=== PATIENT | male | born 1960 | race Hispanic/Latino ===

== ENCOUNTER 2017-09-29 22:00 | Emergency (ER) | payer BC ==
--- NOTE | 2017-09-29 22:54 | C.PDOC ---
History Of Present Illness 57 year old male with PMHx of HIV presents to the ED for evaluation of depression. Patient states he is at "the end of the rope". Patient denies SI/HI , hallucinations, other medical complaints. Chief Complaint (Nursing): Psychiatric Evaluation History Per: Patient History/Exam Limitations: no limitations Onset/Duration Of Symptoms: Days Current Symptoms Are (Timing): Still Present Suicide/Self Injury Attempted (Context): None Modifying Factor(s): Alcohol Associated Symptoms: Depression. denies: Suicidal Thoughts, Suicidal Plan Recent travel outside of the [place]: No Additional History Per: Patient Past Medical History Reviewed: Historical Data, Nursing Documentation, Vital Signs Vital Signs: Last Vital Signs Temp 98.5 F 09/29/17 22:19 Pulse 59 L 09/29/17 22:19 Resp 16 09/29/17 22:19 BP 151/93 H 09/29/17 22:19 Pulse Ox 96 09/29/17 22:54 - Medical History PMH: Anxiety, Depression, HIV Denies: Chronic Kidney Disease Surgical History: No Surg Hx Family History: States: Unknown Family Hx - Social History Hx Alcohol Use: Yes Hx Substance Use: No - Immunization History Hx Tetanus Toxoid Vaccination: Yes Hx Influenza Vaccination: No (not yet this year, but yes to last year) Hx Pneumococcal Vaccination: No Review Of Systems Constitutional: Negative for: Fever, Chills Cardiovascular: Negative for: Chest Pain Respiratory: Negative for: Cough, Shortness of Breath Gastrointestinal: Negative for: Nausea, Vomiting, Abdominal Pain Skin: Negative for: Rash Neurological: Negative for: Weakness, Numbness Psych: Positive for: Depression. Negative for: Suicidal ideation Physical Exam - Physical Exam Appears: Non-toxic, No Acute Distress, Other (slight AOB) Skin: Normal Color, Warm, Dry Head: Atraumatic, Normacephalic Eye(s): bilateral: Normal Inspection Neck: Normal ROM, Supple Chest: Symmetrical Cardiovascular: Rhythm Regular Respiratory: Normal Breath Sounds, No Rales, No Rhonchi, No Wheezing Gastrointestinal/Abdominal: Soft, No Tenderness, No Guarding, No Rebound Extremity: Normal ROM, No Tenderness, No Swelling Neurological/Psych: Oriented x3, Normal Speech Gait: Steady ED Course And Treatment - Laboratory Results Result Diagrams: 09/29/17 22:59 09/29/17 22:59 O2 Sat by Pulse Oximetry: 96 (ON RA) Pulse Ox Interpretation: Normal Medical Decision Making Medical Decision Making: Plan: * Labs * UA * Crisis Disposition Discussed With Dr.: Florentino Ferrari Counseled Patient/Family Regarding: Diagnosis - Disposition Referrals: [facility] [Outside] Disposition: HOME/ ROUTINE Disposition Time: 23:57 Condition: STABLE Instructions: Depression, Adult (DC) Forms: [employer] (Citizen Of [place]) - POA Present On Arrival: None - Clinical Impression Clinical Impression: Depressive disorder - Scribe Statement The provider has reviewed the documentation as recorded by the Scribe Pop Del Angel All medical record entries made by the Scribe were at my direction and personally dictated by me. I have reviewed the chart and agree that the record accurately reflects my personal performance of the history, physical exam, medical decision making, and the department course for this patient. I have also personally directed, reviewed, and agree with the discharge instructions and disposition.
[2017-09-29 23:02] LABS: BASO # 0.1 K/uL (0.0-0.2); BASO % 0.7 % (0.0-2.0); EOS # 0.1 K/uL (0.0-0.7); EOS % 0.7 % (0.0-4.0); HEMOGLOBIN 16.6 g/dL (12.0-18.0); LYMPH # 2.9 K/uL (1.0-4.3); MEAN CELL VOLUME 96.9 fL (80.0-94.0); MEAN CORPUSCULAR HEMOGLOBIN 34.2 pg (27.0-31.0); MEAN CORPUSCULAR HGB CONC 35.3 g/dL (33.0-37.0); MEAN PLATELET VOLUME 7.5 fL (7.2-11.7); MONO # 0.7 K/uL (0.0-0.8); MONO % 8.2 % (0.0-10.0); NEUT # 4.9 K/uL (1.8-7.0); NEUT % 56.4 % (50.0-75.0); RBC 4.86 Mil/uL (4.40-5.90); RED CELL DISTRIBUTION WIDTH 12.7 % (11.5-14.5); WHITE BLOOD COUNT 8.7 K/uL (4.8-10.8)
[2017-09-29 23:06] LABS: URINE BACTERIA RARE (<OCC); URINE BILIRUBIN NEGATIVE (NEGATIVE); URINE CLARITY Clear (Clear); URINE COLOR Yellow (YELLOW); URINE GLUCOSE (UA) NORMAL (Normal); URINE LEUKOCYTE ESTERASE NEG Leu/uL (Negative); URINE PROTEIN NEGATIVE (NEGATIVE); URINE UROBILINOGEN NORMAL mg/dL (0.2-1.0)
[2017-09-29 23:11] LABS: URINE BLOOD TRACE (NEGATIVE)
[2017-09-29 23:15] LABS: ALB/GLOB RATIO 1.2 (1.0-2.1); ALBUMIN 3.9 g/dL (3.5-5.0); ALT/SGPT 44 U/L (21-72); AST/SGOT 31 U/L (17-59); BLOOD UREA NITROGEN 10 mg/dL (9-20); CALCIUM 9.3 mg/dl (8.6-10.4); GFR NON-AFRICAN AMERICAN > 60
[2017-09-29 23:18] LABS: BARBITURATES, UR NEGATIVE (NEGATIVE); BENZODIAZEPINES, UR NEGATIVE (NEGATIVE); OPIATES, UR NEGATIVE (NEGATIVE); PHENCYCLIDINE, UR NEGATIVE (NEGATIVE)
[2017-09-30 00:03] VITALS: BP 138/91; PULSE 74; RESP 18; TEMP 98.8; O2SAT 99
== END 2017-09-30 00:17 | disposition home or self-care (01) ==
LOC: C.ER 22:00
DX: F32.9 Major depressive disorder, single episode, unspecified (principal)
CPT/HCPCS: 80053; 81001; 85025; 99284; G0480

== ENCOUNTER 2018-05-11 13:47 | Inpatient (IN) | payer BC, MEDICAID ==
--- NOTE | 2018-05-11 14:27 | C.PDOC ---
History Of Present Illness 57 year old male presents to ED complaining of feeling depressed, weak, and having no motivation. Patient has PMHx of HIV, depression, and anxiety. Patient admits to drinking, but states that he has not drank in the last 5 days. Patient denies drug use. Patient states that he thinks he should be on medication and needs to be admitted. Patient denies homicidal ideation, suicidal ideation, headache, fever, chills, nausea, and vomiting. Time Seen by Provider: 05/11/18 13:55 Chief Complaint (Nursing): Psychiatric Evaluation History Per: Patient History/Exam Limitations: no limitations Current Symptoms Are (Timing): Still Present Suicide/Self Injury Attempted (Context): None Modifying Factor(s): Alcohol Associated Symptoms: Depression. denies: Suicidal Thoughts, Suicidal Plan Past Medical History Reviewed: Historical Data, Nursing Documentation, Vital Signs Vital Signs: Last Vital Signs Temp 97.9 F 05/11/18 13:54 Pulse 125 H 05/11/18 13:54 Resp 20 05/11/18 13:54 BP 119/80 05/11/18 13:54 Pulse Ox 96 05/11/18 13:54 - Medical History PMH: Anxiety, Depression, HIV Denies: Diabetes, Hepatitis, HTN, Chronic Kidney Disease, Seizures, Sexually Transmitted Disease Surgical History: No Surg Hx Family History: States: Unknown Family Hx - Social History Hx Alcohol Use: Yes Hx Substance Use: No - Immunization History Hx Tetanus Toxoid Vaccination: Yes Hx Influenza Vaccination: No (not yet this year, but yes to last year) Hx Pneumococcal Vaccination: No Review Of Systems Constitutional: Negative for: Fever, Chills Gastrointestinal: Negative for: Nausea, Vomiting Neurological: Negative for: Headache Psych: Positive for: Depression. Negative for: Suicidal ideation, Other (homicidal ideation) Physical Exam - Physical Exam Appears: Non-toxic, No Acute Distress, Other (frail, quiet, looks sad) Skin: Pale Head: Atraumatic, Normacephalic Neck: Normal ROM, Supple Chest: Symmetrical, No Deformity Cardiovascular: Rhythm Regular, No Murmur Respiratory: No Accessory Muscle Use, No Rales, No Rhonchi, No Wheezing Gastrointestinal/Abdominal: Soft, No Tenderness Neurological/Psych: Oriented x3, Normal Speech, Normal Cognition ED Course And Treatment - Laboratory Results Result Diagrams: 05/11/18 14:31 05/11/18 14:31 O2 Sat by Pulse Oximetry: 96 (in RA) Medical Decision Making Medical Decision Making: Impression: 57 year old male presents to ED complaining of feeling depressed, weak, and having no motivation. Plan: Labs ordered with drug screen and UA Patient placed on 1:1 observation Disposition Discussed With Dr.: Florentino Ferrari - Disposition Disposition: HOSPITALIZED Disposition Time: 15:52 Condition: IMPROVED Instructions: Depression Forms: [employer] (Sinhala) - Clinical Impression Clinical Impression: Moderate major depression, single episode - Scribe Statement The provider has reviewed the documentation as recorded by the Scribe (Christine Pisano) All medical record entries made by the Scribe were at my direction and personally dictated by me. I have reviewed the chart and agree that the record accurately reflects my personal performance of the history, physical exam, medical decision making, and the department course for this patient. I have also personally directed, reviewed, and agree with the discharge instructions and disposition. Decision To Admit - Pt Status Changed To: Hospital Disposition Of: Inpatient - Admit Certification Admit to Inpatient:: After my assessment, the patient will require hospitalization for at least two midnights. This is because of the severity of symptoms shown, intensity of services needed, and/or the medical risk in this patient being treated as an outpatient. - InPatient: Physician Admission Certification: I certify that this patient requires 2 or more midnights of care for the following reason:: needs inpatient psych - . Bed Request Type: Psychiatry Admitting Physician: Florentino Ferrari Patient Diagnosis: Moderate major depression, single episode
[2018-05-11 14:38] LABS: NRBC % 0.1 % (0.0-2.0); RBC 4.87 Mil/uL (4.40-5.90)
[2018-05-11 14:40] LABS: URINE BILIRUBIN NEGATIVE (NEGATIVE); URINE BLOOD NEGATIVE (NEGATIVE); URINE CLARITY Clear (Clear); URINE COLOR STRAW (YELLOW); URINE GLUCOSE (UA) NEGATIVE (Normal); URINE LEUKOCYTE ESTERASE NEGATIVE Leu/uL (Negative); URINE PROTEIN NEGATIVE (NEGATIVE); URINE UROBILINOGEN 0.2 mg/dL (0.2-1.0)
[2018-05-11 14:51] LABS: ALB/GLOB RATIO 1.5 (1.0-2.1); ALBUMIN 4.5 g/dL (3.5-5.0); ALT/SGPT 154 U/L (21-72); AST/SGOT 91 U/L (17-59); BLOOD UREA NITROGEN 6 mg/dL (9-20); CALCIUM 9.8 mg/dl (8.6-10.4); GFR NON-AFRICAN AMERICAN > 60
[2018-05-11 15:04] LABS: BARBITURATES, UR NEGATIVE (NEGATIVE); BENZODIAZEPINES, UR NEGATIVE (NEGATIVE); OPIATES, UR NEGATIVE (NEGATIVE); PHENCYCLIDINE, UR NEGATIVE (NEGATIVE)
[2018-05-11] MEDS ORDERED: Sodium Chloride 0.9% 1,000 ML IV ONE (15:05)
[2018-05-11 15:09] LABS: BASO % 0.3 % (0.0-2.0); EOS % 0.2 % (0.0-4.0); LYMPH # 1.8 K/uL (1.0-4.3); LYMPH % 23.4 % (20.0-40.0); MEAN CORPUSCULAR HEMOGLOBIN 33.6 pg (27.0-31.0); MEAN CORPUSCULAR HGB CONC 36.2 g/dL (33.0-37.0); MEAN PLATELET VOLUME 7.6 fL (7.2-11.7); MONO # 0.7 K/uL (0.0-0.8); NEUT # 5.2 K/uL (1.8-7.0); NEUT % 67.1 % (50.0-75.0); RED CELL DISTRIBUTION WIDTH 13.4 % (11.5-14.5); WHITE BLOOD COUNT 7.8 K/uL (4.8-10.8)
[2018-05-11 15:10] LABS: HEMOGLOBIN 16.4 g/dL (12.0-18.0); MEAN CELL VOLUME 92.9 fL (80.0-94.0)
[2018-05-11] MEDS ORDERED: Sodium Chloride 0.9% 1,000 ML ONE (15:42)
[2018-05-11] MEDS ORDERED: Potassium Chloride 20 mEq ER Tab PO STA (16:06)
[2018-05-11] MEDS ORDERED: Potassium Chloride 20 mEq ER Tab PO ONE (16:13)
[2018-05-11 17:31] VITALS: O2SAT 99
--- NOTE | 2018-05-11 18:08 | PCM.BM ---
<Denise Hunt - Last Filed: 05/11/18 18:06> Treatment Plan Problems - Problems identified on initial assessmt Hopeless/Helplessness Date Initiated: 05/11/18 Time Initiated: 18:07 Assessment reference: NA Status: Active Feeling of worthlessness Date Initiated: 05/11/18 Time Initiated: 18:07 Assessment reference: NA Status: Active Treatment assets and liabiliti Patient Assests: cooperative, educated, insightful, ADL independent Patient Liabilities: financial problems, medical problems - Milieu Protocol Maintain good personal hygiene: daily Encourage regular showers, daily Remind patient to perform daily oral care, daily Assist patient to perform ADL's Maintain personal safety: every shift Educate patient to report safety concerns to staff, every shift Monitor environment for contraband/sharps Medication safety: Monitor for expected outcome, potential side effects: every shift, Assess barriers to learning: every shift, Assess readiness for medication education: every shift <Florentino Ferrari - Last Filed: 05/12/18 11:39> - Diagnosis (1) Bipolar depression Status: Acute Interventions: 05/12/18 11:39 * Assess/adjust medications daily and /or as needed * See patient on an individual basis 7x/week to assess level of manic behaviors and stability * Discuss risks, benefits, side effects and alternatives of medications * (2) Alcohol use disorder, severe, dependence Status: Acute Interventions: 05/12/18 11:41 * Assess 7x/week regarding severity of withdrawal * Educate regarding risks, benefits, side effects and alternatives of medications * Use Motivational Interviewing for abstinence * Use CBT for relapse prevention * Medication management for withdrawal symptoms * Encourage medication assisted treatment * <Julieth Walker - Last Filed: 05/12/18 13:09> Family Contact Family involvement: Family/SO is involved Family contact: Patient agrees to contact - Goals for Treatment Patient goals for treatment: "I want to go to an outpatient program." Discharge/Continuing Care - Education Needs Education Needs: Patient Medication, Patient Diagnosis/Disease Process, Patient Coping Skills, Patient Placement options, Patient Community resources - Discharge Discharge Criteria: Free of Suicidal thoughts, Free of agitation, Normal sleep pattern, Ability to care for self, No longer exhibiting s/s of withdrawal, Reduction of target symptoms Discharge to:: Home - Treatment Team Participation Discussed with Family/SO: No Was Patient/Family/SO present at Treatment Team Meeting: Yes
[2018-05-12 06:40] VITALS: RESP 18
--- NOTE | 2018-05-12 11:36 | PCM.PSYCH ---
Initial Psychiatric Evaluation - Initial Psychiatric Evaluation Type of Admission: Voluntary Legal Status: Capacity Chief Complaint (in patient's own words): I was feeling depressed. History of Present Illness and Precipitating Events: Patient is a 57 years old male, who is currently living alone and unemployed, came to the ED with depressed mood and suicidal ideation. Patient denies any past history of any inpatient psychiatric hospitalizations. He denies any history of follow-up with a psychiatrist. As per the patient he is feeling increasingly depressed due to some social stressors. Pt said that his unemployment was cut off after (4) months, and he began some limited work with [employer]. Pt also said that he is on the verge of being evicted. Pt said that he was sitting at home feeling very bad about his medical (HIV positive, blood in his stool) and psychological condition, waiting for a stroke or a heart attack, when he decided to come into the hospital. Patient reports depressed mood and at times feelings of hopelessness and helplessness. He also reports at times irritability and agitation. He reports of drinking up to a pint of vodka daily. He reports very high anxiety and irritability and at times panic attacks. He reports some withdrawal symptoms including anxiety and irritability. However he denies any auditory hallucinations or any paranoia. Past medical history HIV positive Current Medications: Active Medications Generic Name Dose Route Start Last Admin Trade Name Freq PRN Reason Stop Dose Admin Trazodone HCl 50 mg 05/11/18 19:50 05/11/18 22:18 Desyrel PO 50 mg HS PRN Administration Insomnia Past Psychiatric History - Past Psychiatric History Previous Treatment History: None Pertinent Medical Hx (Current Medical&Sleep Prob, Allergies): Allergies Allergy/AdvReac Type Severity Reaction Status Date / Time No Known Allergies Allergy Unverified 05/11/18 13:55 Abacavir/Dolutegravir/Lamivudi [Triumeq 600-50-300 mg Tablet] 1 tab PO DAILY 09/29/17 Atorvastatin 1 tab PO DAILY 09/29/17 Prazosin HCl [Minipress] 2 mg PO DAILY 09/29/17 Rexulti 1 tab PO DAILY 09/29/17 Review of Systems - Review of Systems All systems: reviewed and no additional remarkable complaints except - Psychiatric Psychiatric: Anxiety, Depression, Hopelessness, Irritability, Suicidal Ideation Mental Status Examination - Personal Presentation Personal Presentation: Looks stated age - Affect Affect: Constricted, Depressed - Motor Activity Motor Activity: Calm - Reliability in Providing Information Reliability in Providing Information: Good - Speech Speech: Organized - Mood Mood: Depressed, Anxious - Formal Thought Process Formal Thought Process: No Impairment - Obsessions/Compulsions Obsessions: No Compulsions: No - Cognitive Functions Orientation: Person, Place, Situation, Time Sensorium: Alert Attention/Concentration: Attentive Abstract Thinking: [place] Estimate of Intelligence: Below average Judgement: Imparied, as evidence by: Poor judgement, Imparied, as evidence by: Lack of insight into illness - Risk Risk: Suicidal, Diminished functioning - Limitations Limitations: Living alone DSM 5 DX - DSM 5 DSM 5 Diagnosis: Bipolar disorder mixed severe without psychotic features Alcohol use disorder severe - Recommended/Plan of Treatment Treatment Recommendations and Plan of Treatment: Bipolar disorder mixed severe without psychotic features Alcohol use disorder severe -CBT -Psychoeducation -Supportive therapy and group therapy -Ativan as needed for alcohol withdrawal -Depakote for mood -Neurontin for anxiety -Trazodone for insomnia -Hydroxyzine for anxiety - Smoking Cessation Smoking Cessation Initiated: No
[2018-05-12] MEDS ORDERED: Prazosin HCL 2 mg PO SCH (11:45)
[2018-05-12] MEDS ORDERED: TRIUMEQ PO SCH (13:00)
[2018-05-12] MEDS: Divalproex 250 mg DR Tab PO SCH (18:36)
[2018-05-12] MEDS ORDERED: LAMIVUDI PO SCH (22:00)
[2018-05-12] MEDS ORDERED: ABACAVIR PO SCH (22:00)
[2018-05-12] MEDS ORDERED: DOLUTEGRAVIR PO SCH (22:00)
[2018-05-12] MEDS: Prazosin HCL 2 mg PO SCH (22:48)
[2018-05-12] MEDS: TRIUMEQ PO SCH (22:49)
[2018-05-13] MEDS: Divalproex 250 mg DR Tab PO SCH ×2 (09:26→17:38)
--- NOTE | 2018-05-13 18:14 | CP.PCM.CON ---
History of Present Illness - History of Present Illness History of Present Illness: Hospitalist Consult Note Patient was seen and examined a 4:15 PM Bed 534 A Medicine Team was consulted for evaluation of blood per rectum 57 year old mail admitted to the psychiatry unit on [address] [place] [address] for further treatment and evaluation of Depression. Medicine Team was consulted as patient has been experiencing bright red blood per rectum with each bowel movement since this past Tuesday05/10/18. This has never happened before this time. States that the blood is present on the stool and in the bowel when he pushes. He has been having these bowel movements 1 to 2 times daily. Last episode was this morning. They are not preceded by any abdominal pain. He has not changed his diet recently and has no history of travel. His last colonoscopy was when he was 48 y/o, performed in [place], and states that there were NO issues. NO recent weight loss/gain. Since this has been happening he states t hat he will get lightheaded when getting up from a seated position but also states that he also has not bee eating much as he has been drinking at least 1 pint of vodka daily (with last drink last Tuesday 1 week ago today). Upon FULL ROS: NO chest pain NO palpitations NO SOB/Cough/Wheezing NO dysphagia/odynophagia NO abdominal pain NO n/v/d/c: stools are soft and not hard NO burning/pain with urination NO current lightheadedness/dizziness NO headaches NO new changes in vision NO new changes in hearing NO paresthesias NO edema PMHx: Anxiety/Depression (not currently seeing a Psychiatrist as an outpatient), HIV (being followed by GIDEON Miranda as an outpatient, was last seen in February 2018, currently not taking any HIV medications consistently due to insurance issues) PSHx: denies ALL: denies Medication: Prazosin Social Hx: Currently unemployed. Lives Alone, Stopped Smoking 10 years ago (<1 ppd), (+) Alcohol: 1 pint of vodka daily for the past 4 years with having quit 05/06/18 and has attended AA meetings in the past Family Hx: Mom alive at 81 years old (healthy), Dad (Hx Crohn's Disease), Daughter alive (no medical issues Exam General: AAOx3, NAD HEENT: NCA, EOMI, PERRLA, NO pharyngeal erythema/exudate, NO lymphadenopathy, NO thyromegaly Cardio: NS1 and NS2, NO M/R/G Resp: CTA B/L, NO R/R/W GI: BSx4, Soft, NT, NO HSM, NO guarding/rebound tenderness Ext: Pulses are strong and equal, Capillary Refill is 2 seconds, NO edema Neuro: CN II through XII are grossly intact Rectal: External hemorrhoid at the 3 O'clock position Assessment: 1). C/O of Rectal Bleeding HgB/Hct are WNL Could this be secondary to Hemorrhoid vs Colon Issue? Explained at length the importance of Colonoscopy for further evaluation of this issue He assures me that he will schedule care with the clinic at this hospital so that Colonoscopy can be arranged as an outpatient Stool Occult has been ordered Iron Studies have been ordered for morning 05/14/18 Psychiatry Team upon discharge please make sure that the patient has the following instructions: 1). Schedule appointment with the [facility] located on [address] of [address] in [place], [place] by calling [phone] for an appointment. The doctors at this clinic will help to coordinate your care for your history of HIV and help you to obtain referral for outpatient colonoscopy. Curt Batista D.O. Past Patient History - Past Social History Smoking Status: Heavy Smoker > 10 Cigarettes Daily - CARDIAC Hx Cardiac Disorders: No Hx Hypertension: No - PULMONARY Hx Tuberculosis: No - NEUROLOGICAL HX Cerebrovascular Accident: No Hx Seizures: No - HEENT Hx HEENT Problems: No - RENAL Hx Chronic Kidney Disease: No - ENDOCRINE/METABOLIC Hx Endocrine Disorders: No - HEMATOLOGICAL/ONCOLOGICAL Hx Cancer: No Hx Human Immunodeficiency Virus (HIV): Yes (Pt reported that he is HIV Pos) - INTEGUMENTARY Hx Dermatological Problems: No - MUSCULOSKELETAL/RHEUMATOLOGICAL Hx Musculoskeletal Disorders: No - GASTROINTESTINAL Hx Gastrointestinal Disorders: No - GENITOURINARY/GYNECOLOGICAL Hx Sexually Transmitted Disorders: No - PSYCHIATRIC Hx Substance Use: Yes - SURGICAL HISTORY Hx Surgeries: No - ANESTHESIA Hx Anesthesia: No Hx Anesthesia Reactions: No Meds Allergies/Adverse Reactions: Allergies Allergy/AdvReac Type Severity Reaction Status Date / Time No Known Allergies Allergy Unverified 05/11/18 13:55 - Medications Medications: Current Medications Divalproex Sodium (Depakote Dr) 250 mg PO BID [facility] Last Admin: 05/13/18 17:38 Dose: 250 mg Gabapentin (Neurontin) 100 mg PO TID [facility] Last Admin: 05/13/18 17:38 Dose: 100 mg Home Med (Patient's Own Medication) 1 tab PO HS [facility] Last Admin: 05/12/18 22:49 Dose: 1 tab Lorazepam (Ativan) 1 mg PO Q6 PRN PRN Reason: Symptoms of alcohol withdrawl Prazosin HCl (Minipress) 2 mg PO HS [facility] Last Admin: 05/12/18 22:48 Dose: 2 mg Trazodone HCl (Desyrel) 50 mg PO HS PRN PRN Reason: Insomnia Last Admin: 05/11/18 22:18 Dose: 50 mg Results - Vital Signs Recent Vital Signs: Last Vital Signs Temp 98.6 F 05/13/18 06:58 Pulse 71 05/13/18 15:48 Resp 18 05/13/18 06:58 BP 105/73 05/13/18 15:48 Pulse Ox 99 05/11/18 17:30 - Labs Result Diagrams: 05/11/18 14:31 05/11/18 14:31
--- NOTE | 2018-05-13 18:33 | CP.PCM.PCO ---
Physician Communication Note - Physician Communication Note Physician Communication Note: Please see above
[2018-05-13] MEDS: TRIUMEQ PO SCH (21:52)
[2018-05-13] MEDS: Prazosin HCL 2 mg PO SCH (21:52)
[2018-05-14] MEDS: Divalproex 250 mg DR Tab PO SCH ×2 (09:06→18:01)
[2018-05-14 09:31] LABS: BASO % 0.5 % (0.0-2.0); EOS % 0.6 % (0.0-4.0); LYMPH # 2.5 K/uL (1.0-4.3); LYMPH % 40.2 % (20.0-40.0); MEAN CORPUSCULAR HEMOGLOBIN 33.3 pg (27.0-31.0); MEAN CORPUSCULAR HGB CONC 34.7 g/dL (33.0-37.0); MEAN PLATELET VOLUME 7.9 fL (7.2-11.7); MONO # 0.7 K/uL (0.0-0.8); NEUT % 47.7 % (50.0-75.0); NRBC % 0.1 % (0.0-2.0); RBC 4.29 Mil/uL (4.40-5.90); RED CELL DISTRIBUTION WIDTH 13.6 % (11.5-14.5); WHITE BLOOD COUNT 6.2 K/uL (4.8-10.8)
[2018-05-14 09:32] LABS: HEMOGLOBIN 14.3 g/dL (12.0-18.0)
[2018-05-14 09:37] LABS: IRON 56 ug/dL (49-181)
[2018-05-14 09:41] LABS: ALB/GLOB RATIO 1.5 (1.0-2.1); ALBUMIN 3.9 g/dL (3.5-5.0); ALT/SGPT 146 U/L (21-72); AST/SGOT 90 U/L (17-59); BLOOD UREA NITROGEN 12 mg/dL (9-20); CALCIUM 9.2 mg/dl (8.6-10.4); GFR NON-AFRICAN AMERICAN > 60
[2018-05-14 09:47] LABS: % IRON SATURATION 21 (20-55); TOTAL IRON BINDING CAPACITY 268 ug/dL (250-450)
[2018-05-14] MEDS: Prazosin HCL 2 mg PO SCH (21:43)
[2018-05-14] MEDS: TRIUMEQ PO SCH (21:44)
--- NOTE | 2018-05-14 23:20 | PCM.PYCHPN ---
Psychiatric Progress Note - Psychiatric Progress Note Patient seen today, length of contact: 15 min Patient Chief Complaint: I was feeling depressed. Problems Identified/Issues Discussed: Patient seen and evaluated, chart reviewed and discussed with the nurse. Patient reports depressed mood and at times feelings of hopelessness and helplessness. He remained isolated and withdrawn and confined to his room Patient reports improvement in the withdrawal symptoms including cramps, joint pains, headaches. He is taking medication and denies any side effects. Supportive therapy and psychoeducation were given Medication Change: Yes Medical Record Reviewed: Yes Mental Status Examination - Cognitive Function Orientation: Person, Place, Situation, Time Memory: Intact Attention: WNL Concentration: Poor Association: WNL Fund of Knowledge: Poor - Mood Mood: Depressed, Anxious - Affect Affect: Constricted, Depressed - Speech Speech: Soft - Formal Thought Process Formal Thought Process: No Impairment - Suicidal Ideation Suicidal Ideation: No - Homicidal Ideation Homicidal Ideation: No Goal/Treatment Plan - Goal/Treatment Plan Need for Continued Stay: Remain at risks for inpatient hospitalization Progress Toward Problem(s) and Goals/Treatment Plan: Bipolar disorder mixed severe without psychotic features Alcohol use disorder severe -CBT -Psychoeducation -Supportive therapy and group therapy -Ativan as needed for alcohol withdrawal -Depakote for mood -Neurontin for anxiety -Trazodone for insomnia -Hydroxyzine for anxiety
[2018-05-15] MEDS: Divalproex 250 mg DR Tab PO SCH ×2 (09:51→17:49)
[2018-05-15] MEDS: TRIUMEQ PO SCH (21:12)
[2018-05-15] MEDS: Prazosin HCL 2 mg PO SCH (21:12)
[2018-05-16 06:42] VITALS: BP 108/72; PULSE 81; TEMP 98.3
[2018-05-16] MEDS: Divalproex 250 mg DR Tab PO SCH (09:17)
--- NOTE | 2018-05-16 10:51 | PCM.PYCHDC ---
Mental Status Examination - Mental Status Examination Orientation: Person, Place, Situation, Time Memory: Intact Mood: Neutral Affect: Constricted Speech: Soft Attention: WNL Concentration: WNL Association: WNL Fund of Knowledge: WNL Formal Thought Process: No Impairment Description of patient's judgement and insight: good, fair Psychotic Thoughts and Behaviors: denies any AVH Suicidal Ideation: No Current Homicidal Ideation?: No Discharge Summary - Discharge Note Consultations:: List each consultation separately and include: 1. Reason for request. 2. Findings. 3. Follow-up Summary of Hospital Course include:: 1. Description of specific treatment plan utilized for patients during their course of treatmen. 2. Summarize the time- course for resolution of acute symptoms and/or regressed behaviors. 3. Describe issues identified and worked on during hospitalization. 4. Describe medication utilized. 5. Describe medical problems identified and treated. 6. Reassessment of suicide risk Summary of Hospital Course: Patient is a 57 years old male, who is currently living alone and unemployed, came to the ED with depressed mood and suicidal ideation. Patient denies any past history of any inpatient psychiatric hospitalizations. He denies any history of follow-up with a psychiatrist. As per the patient he is feeling increasingly depressed due to some social stressors. Pt said that his unemployment was cut off after (4) months, and he began some limited work with [employer]. Pt also said that he is on the verge of being evicted. Pt said that he was sitting at home feeling very bad about his medical (HIV positive, blood in his stool) and psychological condition, waiting for a stroke or a heart attack, when he decided to come into the hospital. Patient reports depressed mood and at times feelings of hopelessness and helplessness. He also reports at times irritability and agitation. He reports of drinking up to a pint of vodka daily. He reports very high anxiety and irritability and at times panic attacks. He reports some withdrawal symptoms including anxiety and irritability. However he denies any auditory hallucinations or any paranoia. Past medical history HIV positive - Diagnosis (1) Bipolar depression Current Visit: Yes Status: Acute (2) Alcohol use disorder, severe, dependence Current Visit: Yes Status: Acute - Final Diagnosis (DSM 5) Condition upon Discharge: IMPROVED Disposition: HOME/ ROUTINE Follow-up Treatment Plan: Bipolar disorder mixed severe without psychotic features Alcohol use disorder severe -CBT -Psychoeducation -Supportive therapy and group therapy -Ativan as needed for alcohol withdrawal -Depakote for mood -Neurontin for anxiety -Trazodone for insomnia -Hydroxyzine for anxiety Prescriptions/Medication Reconciliation: Divalproex [Depakote DR] 250 mg PO BID #60 tcp Gabapentin [Neurontin] 300 mg PO BID #60 cap Prazosin HCL [Minipress] 2 mg PO HS #30 cap traZODone [Desyrel] 50 mg PO HS PRN #30 tab PRN Reason: Insomnia
== END 2018-05-16 11:25 | disposition home or self-care (01) | DRG 753 ==
LOC: C.ER 13:47 → C.5E 16:37
PROVIDERS: ADMIT Psychiatry & Neurology Psychiatry; ATTEND Psychiatry & Neurology Psychiatry
PROC: GZ3ZZZZ Medication Management (ICD-10-PCS; principal; 2018-05-11)
PROC: HZ89ZZZ Medication Management for Substance Abuse Treatment, Other Replacement Medication (ICD-10-PCS; 2018-05-11)
PROC: GZHZZZZ Group Psychotherapy (ICD-10-PCS; 2018-05-11)
PROC: GZ56ZZZ Individual Psychotherapy, Supportive (ICD-10-PCS; 2018-05-11)
DX: F31.63 Bipolar disorder, current episode mixed, severe, without psychotic features (principal); R45.851 Suicidal ideations; F10.20 Alcohol dependence, uncomplicated; F41.0 Panic disorder [episodic paroxysmal anxiety]; G47.00 Insomnia, unspecified; K92.1 Melena; F17.210 Nicotine dependence, cigarettes, uncomplicated; Z21 Asymptomatic human immunodeficiency virus [HIV] infection status